=== PATIENT | male | born 1960 | race Caucasian/White ===

== ENCOUNTER → 2017-06-11 | Outpatient (CLI) | payer OTHER ==
[2017-06-11 19:09] LABS: ALBUMIN 4.1 GM/DL (3.2-5.2); ALBUMIN/GLOBULIN RATIO 1.03 (1.00-1.93); ALKALINE PHOSPHATASE 112 U/L (45-117); ALT/SGPT 36 U/L (12-78); ANION GAP 8 MEQ/L (8-16); AST/SGOT 34 U/L (7-37); BILIRUBIN,TOTAL 0.9 MG/DL (0.2-1.0); BLOOD UREA NITROGEN 7 MG/DL (7-18); CALCIUM LEVEL 9.2 MG/DL (8.5-10.1); CARBON DIOXIDE LEVEL 28 MEQ/L (21-32); CHLORIDE LEVEL 102 MEQ/L (98-107); CREATININE FOR GFR 1.02 MG/DL (0.70-1.30); GLOMERULAR FILTRATION RATE > 60.0 (>56); GLUCOSE, FASTING 103 MG/DL (70-100); NT-PRO BNP 136 PG/ML (<125); SODIUM LEVEL 138 MEQ/L (136-145); TOTAL PROTEIN 8.1 GM/DL (6.4-8.2)
[2017-06-11 19:18] LABS: BASO # 0.1 10^3/uL (0.0-0.2); BASO % 0.5 % (0.0-1.0); EOS # 0.1 10^3/uL (0.0-0.50); EOS % 0.5 % (0.0-3.0); HEMATOCRIT 46.7 % (42.0-52.0); HEMOGLOBIN 15.5 g/dl (14.0-18.0); IMMATURE GRANULOCYTE % 0.3 % (0-3.0); LYMPH # 1.4 10^3/uL (1.5-4.5); LYMPH % 12.6 % (24.0-44.0); MEAN CORPUSCULAR HEMOGLOBIN 31.6 pg (27.0-33.0); MEAN CORPUSCULAR HGB CONC 33.2 g/dl (32.0-36.5); MEAN CORPUSCULAR VOLUME 95.3 fl (80.0-96.0); MONO # 1.1 10^3/uL (0.0-0.8); MONO % 9.9 % (0.0-5.0); NEUTROPHILS # 8.4 10^3/uL (1.8-7.7); NEUTROPHILS % 76.2 % (36.0-66.0); PLATELET COUNT, AUTOMATED 247 10^3/uL (150-450); RED CELL DISTRIBUTION WIDTH 12.6 % (11.5-14.5)
== END ==
LOC: M ADAMS 08:34
DX: R07.9 Chest pain, unspecified (principal); E03.0 Congenital hypothyroidism with diffuse goiter
CPT/HCPCS: 80053

== ENCOUNTER → 2020-10-14 | Outpatient (REF) | payer OTHER ==
[2020-10-14 16:46] LABS: BASO # 0.1 10^3/uL (0.0-0.2); BASO % 0.9 % (0.0-1.0); EOS # 0.2 10^3/uL (0.0-0.5); EOS % 2.7 % (0.0-3.0); HEMATOCRIT 41.4 % (42.0-52.0); HEMOGLOBIN 13.5 g/dl (13.5-17.5); LYMPH # 1.9 10^3/uL (1.5-5.0); LYMPH % 25.7 % (24.0-44.0); MEAN CORPUSCULAR HEMOGLOBIN 31.5 pg (27.0-33.0); MEAN CORPUSCULAR HGB CONC 32.6 g/dl (32.0-36.5); MEAN CORPUSCULAR VOLUME 96.7 fl (80.0-96.0); MONO # 1.2 10^3/uL (0.0-0.8); MONO % 16.6 % (2.0-8.0); NEUTROPHILS % 53.8 % (36.0-66.0); PLATELET COUNT, AUTOMATED 264 10^3/uL (150-450); RED BLOOD COUNT 4.28 10^6/uL (4.30-6.10); WHITE BLOOD COUNT 7.4 10^3/uL (4.0-10.0)
[2020-10-14 18:35] LABS: ALBUMIN 3.5 GM/DL (3.2-5.2); ALT/SGPT 27 U/L (12-78); BILIRUBIN,TOTAL 0.5 MG/DL (0.2-1.0); BLOOD UREA NITROGEN 7 MG/DL (7-18); CALCIUM LEVEL 8.9 MG/DL (8.5-10.1); CARBON DIOXIDE LEVEL 27 MEQ/L (21-32); CHLORIDE LEVEL 106 MEQ/L (98-107); CHOLESTEROL LEVEL 200 MG/DL (<200); CHOLESTEROL RISK RATIO 2.173 (<5); CREATININE FOR GFR 0.75 MG/DL (0.70-1.30); GLOMERULAR FILTRATION RATE > 60.0 (>56); GLUCOSE, FASTING 73 MG/DL (70-100); HDL CHOLESTEROL 92 MG/DL (>40); LDL CHOLESTEROL 100 MG/DL (<100); NON-HDL-C 108 MG/DL; POTASSIUM SERUM 4.4 MEQ/L (3.5-5.1); SODIUM LEVEL 140 MEQ/L (136-145); TOTAL PROTEIN 7.1 GM/DL (6.4-8.2); TRIGLYCERIDES LEVEL 41 MG/DL (<150)
== END ==
LOC: M SFHCPLAZ 15:37 → M SFHCADAM 15:40
PROVIDERS: ATTEND Physician Assistant
DX: R03.0 Elevated blood-pressure reading, without diagnosis of hypertension (principal); F41.9 Anxiety disorder, unspecified

== ENCOUNTER → 2021-01-23 | Outpatient (CLI) | payer OTHER | LOC: M LABSMTC 09:19 | PROVIDERS: ATTEND Anesthesiology | DX: Z01.812 Encounter for preprocedural laboratory examination (principal); Z20.822 Contact with and (suspected) exposure to COVID-19 ==

== ENCOUNTER 2021-01-28 11:51 | Day surgery (SDC) | payer OTHER ==
[~2021-01-28] VITALS: Ht 160 cm; Wt 72.6 kg
[~2021-01-28 11:51] MED LIST: NS 1,000 ML IV ONE
--- OUTSIDE RECORDS SUMMARY | 2021-01-28 11:56 | CCD ---
Author Author [facility] Organization [facility] Address Unknown Phone Unavailable Care Team Providers Care Accounting Auditor Name Role Phone Emilynasrin Jacinta Unavailable PROBLEMS Type Condition ICD9-CM Code HVO89-WC Code Onset Dates Condition S tatus W/U Status Risk SNOMED Code Notes Problem Anxiety F41.9 Active confirmed 76660221 Problem Alcohol abuse F10.10 Active confirmed 398938 05 Problem Alcohol abuse 305.00 Active confirmed 887492 05 Problem Cervicalgia 723.1 Active confirmed 79275613 ALLERGIES No Known Allergies ENCOUNTERS from 1960 to 2020-12-21 Encounter Location Date Provider Diagnosis [address] [place] [address] Nov, Jacinta Bullard Alcohol abuse F10.10 ; Anxiety F41.9 ; E levated blood pressure reading R03.0 ; Colon cancer screening Z12.11 ; Encounter for immunization Z23 and Annual physical exam Z00.00 IMMUNIZATIONS Vaccine Route Administration Date Status TDAP 0.5mL Boostrix IM Intramuscular Dec 15, 2020 Administere d COVID-19 dose #2 given elsewhere Unspecified Unknown Sep Administered COVID-19 dose #1 given elsewhere Unspecified Unknown Sep Administered SOCIAL HISTORY Tobacco Use: Social History Observation Description Date Details (start date - stop date) Never Smoker Sex Assigned At : Social History Observation Description Sex Assigned At Unknown Education: Question Answer Notes Level of Education: High School Audit Question Answer Notes Total Score: 4 Interpretation: Alcohol Education Drug and Alcohol Question Answer Notes Total Score: 0 Interpretation: No problems reported Tobacco Use: Question Answer Notes Are you a: never smoker REASON FOR REFERRAL from 1960 to 2020-12-21 Reason Patient should have a routin e colonoscopy. Please eval and treat. Diagnosis 1 Colon cancer screening (Z12. 11) Referral Organization [facility] Abdi Referring Provider First Name Jacinta Referring Provider Last Name Juan Miguel Referring Provider Specialty Family Medicine Referred Provider General Lety MORAN (Jose jeffers) Referred Provider Specialty General Surgery Referral Priority Routine General Notes Wyatt Abbott 12/15/2020 4:36 :03 PM > faxed VITAL SIGNS Weight 166.1 lbs Nov, Weight-kg 75.34 kg Nov, Height 5'5" in Nov, BMI 27.64 kg/m2 Nov, Heart Rate 105 /min Nov, Respiratory Rate 18 /min Nov, Temperature 98.2 degrees Fahrenheit Nov, Oximetry 99 Nov, Blood pressure systolic 152 mm Hg Nov, Blood pressure diastolic 88 mm Hg Nov, MEDICATIONS Medication SIG (Take, Route, Frequency, Duration) Notes Start Da te End Date Status Blood Pressure Monitor/Arm - as directed daily for 30 days Sep, Active PROCEDURES No Information RESULTS No Results REASON FOR VISIT LIBRARY SERVICES [facility] (GENERAL) HISTORY Type Description Date Surgical History artery repair right arm Surgical History foot repair Hospitalization History infection left foot Hospitalization History fell and hit neck Goals Section No Information Health Concerns No Information MEDICAL EQUIPMENT No Information MENTAL STATUS No Information FUNCTIONAL STATUS No Information ASSESSMENTS Encounter Date Diagnosis Assessment Notes Treatment Notes Treatm ent Clinical Notes Nov, Alcohol abuse (ICD-10 - F10.10) Nov, Anxiety (ICD-10 - F41.9) Discussed. This seems primarily situational for him. He does not want medication. Declines referral for counseling. He isn't sure if this is closely related to drinking; denies drinking to deal with anxiety. He does feel more anxious when he hasn't had a drink in a while. Nov, Elevated blood pressure reading (ICD-10 - R03.0) Improved later in the visit, home readings are all within goal. Nov, Colon cancer screening (ICD-10 - Z12.11) Nov, Encounter for immunization (ICD-10 - Z23) Immunizations reviewed. Any questions were answered. Patient agreed to immunization, and received vaccine in office today. Nov, Annual physical exam (ICD-10 - Z00.00) Patient seen and examined. Past medical, surgical, family, social history reviewed. Discussed preventive medicine, including immunizations. Appropriate labwork was previously ordered. PLAN OF TREATMENT Treatment Notes Assessment Notes Clinical Notes Anxiety Discussed. This see ms primarily situational for him. He does not want medication. Declines referral for counseling. He isn't sure if this is closely related to drinking; denies drinking to deal with anxiety. He does feel more anxious when he hasn't had a drink in a while. Elevated blood pressure reading Improved later in the visit, home readings are all within goal. Encounter for immunization Immunizations reviewed. Any questions were answered. Patient agreed to immunization, and received vaccine in office today. Annual physical exam Patient seen and ex amined. Past medical, surgical, family, social history reviewed. Discussed preventive medicine, including immunizations. Appropriate labwork was previously ordered. Future Test Test Name Order Date Imm: Boostrix 0.5mL IM TDAP [id number] Referrals Referral Date Details Patient should have a routin e colonoscopy. Please eval and treat., [facility]ge[facility] ([facility] Next Appt Details 2-3 months Reason:f/u Provider Name:Jacinta Bullard, 2021-02-23 08:00:00 AM, [address], , [place], [address], Follow Up:2-3 monthsf/u Insurance Providers Payer Name Payer Address Payer Phone Insured Name Patient Relati onship to Insured Coverage Start Date Coverage End Date [employer] CLAIM[employer] DEPT [address] [facility] [phone] MARJORIE TABARES
--- OUTSIDE RECORDS SUMMARY | 2021-01-28 11:56 | CCD ---
Author Author [facility] Organization [facility] Address Unknown Phone Unavailable Care Team Providers Care Mobile Ui/Ux Designer Name Role Phone Ontiveros, L Lauren RPA Unavailable Unavailable Ontiveros, L Lauren RPA Unavailable Unavailable Ontiveros, L Lauren RPA Unavailable Unavailable Ontiveros, L Lauren RPA Unavailable Unavailable Ontiveros, L Lauren RPA Unavailable Unavailable Ontiveros, L Lauren RPA Unavailable Unavailable Ontiveros, L Lauren RPA Unavailable Unavailable Ontiveros, L Lauren RPA Unavailable Unavailable Ontiveros, L Lauren RPA Unavailable Unavailable Ontiveros, L Lauren RPA Unavailable Unavailable Ontiveros, L Lauren RPA Unavailable Unavailable Ontiveros, L Lauren RPA Unavailable Unavailable Ontiveros, L Lauren RPA Unavailable Unavailable Ontiveros, L Lauren RPA Unavailable Unavailable Ontiveros, L Lauren RPA Unavailable Unavailable Ontiveros, L Lauren RPA Unavailable Unavailable Ontiveros, L Lauren RPA Unavailable Unavailable Ontiveros, L Lauren RPA Unavailable Unavailable Ontiveros, L Lauren RPA Unavailable Unavailable Ontiveros, L Lauren RPA Unavailable Unavailable Ontiveros, L Lauren RPA Unavailable Unavailable Ontiveros, L Lauren RPA Unavailable Unavailable Ontiveros, L Lauren RPA Unavailable Unavailable Ontiveros, L Lauren RPA Unavailable Unavailable Ontiveros, L Lauren RPA Unavailable Unavailable Ontiveros, L Lauren RPA Unavailable Unavailable Ontiveros, L Lauren RPA Unavailable Unavailable Ontiveros, L Lauren RPA Unavailable Unavailable Ontiveros, L Lauren RPA Unavailable Unavailable Ontiveros, L Lauren RPA Unavailable Unavailable Ontiveros, L Lauren RPA Unavailable Unavailable Ontiveros, L Lauren RPA Unavailable Unavailable Re-disclosure Warning The records that you are about to access may contain information from federally-assisted alcohol or drug abuse programs. If such information is present, then the following federally mandated warning applies: This information has been disclosed to you from records protected by federal confidentiality rules (42 CFR part 2). The federal rules prohibit you from making any further disclosure of this information unless further disclosure is expressly permitted by the written consent of the person to whom it pertains or as otherwise permitted by 42 CFR part 2. A general authorization for the release of medical or other information is NOT sufficient for this purpose. The Federal rules restrict any use of the information to criminally investigate or prosecute any alcohol or drug abuse patient.The records that you are about to access may contain highly sensitive health information, the redisclosure of which is protected by Article 27-F of the [facility] Public Health law. If you continue you may have access to information: Regarding HIV / AIDS; Provided by facilities licensed or operated by the [facility] Office of Mental Health; or Provided by the [facility] Office for People With Developmental Disabilities. If such information is present, then the following [facility] mandated warning applies: This information has been disclosed to you from confidential records which are protected by state law. State law prohibits you from making any further disclosure of this information without the specific written consent of the person to whom it pertains, or as otherwise permitted by law. Any unauthorized further disclosure in violation of state law may result in a fine or fpc sentence or both. A general authorization for the release of medical or other information is NOT sufficient authorization for further disc losure. Family History Family Member Name Family Member Gender Family Member Status Date o f Status Description Data Source(s) Unknown Female Problem MEDENT ([facility]) Encounters Encounter Providers Location Date Indications Data Source(s ) Outpatient Attender: Lauren Hogan/Rashard/Bereniec bryant 12/31/2020 09:30:00 AM EDT MEDENT ([facility] [place] [address] [facility] [address] 12/15/2020 12:00:00 AM EDT eCW1 ([facility]) Outpatient [address] [facility] [address] 10/13/2020 12:00:00 AM EDT eCW1 ([facility]) [place] [address] [facility] [address] 10/09/2020 12:00:00 AM EDT eCW1 ([facility]) Immunizations Vaccine Date Status Description Data Source(s) Tdap 12/15/2020 11:59:00 AM EDT completed e CW1 ([facility]) COVID-19 dose #2 given elsewhere Unspecified 10/08/2020 03:4 7:00 PM EDT completed eCW1 ([facility]) COVID-19 dose #2 given elsewhere Unspecified 10/08/2020 03:4 7:00 PM EDT completed eCW1 ([facility]) COVID-19 dose #2 given elsewhere Unspecified 10/08/2020 03:4 7:00 PM EDT completed eCW1 ([facility]) COVID-19 VACC, MRNA(PFIZER)/PF 10/08/2020 12:00:00 AM EDT completed [facility] COVID-19 VACCINE Pfizer 10/08/2020 12:00:00 AM EDT completed [facility] Vaccine Series Complete: YESThis Data wa s Submitted to [facility] Via [employer]. COVID-19 dose #1 given elsewhere Unspecified 09/21/2020 03:4 7:00 PM EDT completed eCW1 ([facility]) COVID-19 dose #1 given elsewhere Unspecified 09/21/2020 03:4 7:00 PM EDT completed eCW1 ([facility]) COVID-19 dose #1 given elsewhere Unspecified 09/21/2020 03:4 7:00 PM EDT completed eCW1 ([facility]) COVID-19 VACC, MRNA(PFIZER)/PF 09/20/2020 12:00:00 AM EDT completed [facility] COVID-19 VACCINE Pfizer 09/20/2020 12:00:00 AM EDT completed [facility] Vaccine Series Complete: NOThis Data was Submitted to [facility] [employer]. Medications Medication Brand Name Start Date Product Form Dose Route Admi nistrative Instructions Pharmacy Instructions Status Indications Reaction Description Data Source(s) SUPREP BOWEL PREP KIT 17.5-3.13-1.6 gram SODIUM, POTASSIUM,M AG SULFATES 01/16/2021 12:00:00 AM EDT recon soln 354 TAKE PER DOCTOR'S BOWEL PREP INSTRUCTIONS TAKE PER DOCTOR'S BOWEL PREP INSTRUCTIONS SOLD: 01/22/2021 [facility] Blood Pressure Monitor/Arm - Blood Pressure Monitor/Arm - 12:00:00 AM EDT active Blood Pressure Mo nitor/Arm - eCW1 ([facility]) BLOOD PRESSURE TEST KIT-LARGE 10/09/2020 12:00:00 AM EDT kit 1 USE DAILY DIRECTED USE DAILY DIRECTED SOLD: 10/12/2020 [facility] Blood Pressure Monitor/Arm - Blood Pressure Monitor/Arm - 12:00:00 AM EDT active Blood Pressure Mo nitor/Arm - eCW1 ([facility]) Blood Pressure Monitor/Arm - Blood Pressure Monitor/Arm - 12:00:00 AM EDT active Blood Pressure Mo nitor/Arm - eCW1 ([facility]) 100 mg 09/16/2020 12:00:00 AM EDT capsule 20 TAKE ONE CAPSULE BY MOUTH EVERY 12 HOURS FOR 10 DAYS TAKE ONE CAPSULE BY MOUTH EVERY 12 HOURS FOR 10 DAYS S OLD: 09/16/2020 [facility] Insurance Providers Payer name Policy type / Coverage type Policy ID Covered democrat ID Covered democrat's relationship to german Policy German Plan Information PENDING SALE TO [facility] [id number] SP [id number] [facility] [employer] [employer] [id number] SP [id number] Problems, Conditions, and Diagnoses Code Display Name Description Problem Type Effective Dates Data Source(s) F10.10 [id number] Alcohol abuse Problem 12/15/2020 12:00:00 AM EDT eCW1 ([facility]) F41.9 [id number] Anxiety Problem 10/09/2020 12:00:00 AM ED T eCW1 ([facility]) Surgeries/Procedures Procedure Description Date Indications Data Source(s) OFFICE OUTPATIENT NEW 30 MINUTES 12/31/2020 12:00:00 A M EDT MEDENT ([facility]) Results ID Date Data Source [id number] 01/23/2021 09:00:00 AM EDT [facility] Name Value Range Interpretation Code Description Data Julee rce(s) Supporting Document(s) SARS-CoV-2 (COVID-19) RNA [Presence] in Respiratory specimen by ENEDINA with probe detection Not Detected [facility] This lab was ordered by [facility] and reported by [employer]. Procedure Social History Code Duration Value Status Description Data Source(s ) Smoking 12/15/2020 12:00:00 AM EDT Never Smoker completed Never S moker eCW1 ([facility]) Vital Signs ID Date Data Source UNK Name Value Range Interpretation Code Description Data Source(s) Systolic blood pressure 166 mm[Hg] 166 mm[Hg] [facility] ([facility]) Diastolic blood pressure 100 mm[Hg] 100 mm[Hg] [facility] ([facility]) Body temperature 98.2 [degF] 98.2 [degF] [facility] ([facility]) Body height 64 [in_i] 64 [in_i] [facility] ([facility]) 5'4" Body weight 164.12 [lb_av] 164.12 [lb_av] [facility] ([facility]) Body mass index (BMI) [Ratio] 28.2 kg/m2 28.2 k g/m2 [facility] ([facility]) [place] body weight 130 [lb_av] 130 [facility]lb_av[facility] Body weight 74.447 kg 74.447 kg [facility] ([facility]) Body surface area Derived from formula 1.80 m2 1.80 m2 [facility] ([facility]) Body weight 166.1 [lb_av] 166.1 [lb_av] eCW1 ([facility] Body weight 75.34 kg 75.34 kg W1 ([facility]) Body height [in_i] eCW1 ([facility]) Body mass index (BMI) [Ratio] 27.64 kg/m2 27.64 kg/m2 eCW1 ([facility]) Heart rate 105 /min 105 /min eCW1 ([facility]) Respiratory rate 18 /min 18 /min eCW1 ([facility]) Body temperature 98.2 [degF] 98.2 [degF] eCW1 ( [facility]) Systolic blood pressure 152 mm[Hg] 152 mm[Hg] e CW1 ([facility]) Diastolic blood pressure 88 mm[Hg] 88 mm[Hg] eCW1 ([facility]) Body weight 166.6 [lb_av] 166.6 [lb_av] eCW1 ([facility]) Body height [in_i] eCW1 ([facility]) Body mass index (BMI) [Ratio] 27.72 kg/m2 27.72 kg/m2 eCW1 ([facility]) Heart rate 117 /min 117 /min eCW1 ([facility]) Respiratory rate 18 /min 18 /min eCW1 ([facility]) Body temperature 98.6 [degF] 98.6 [degF] eCW1 ( [facility]) Systolic blood pressure 148 mm[Hg] 148 mm[Hg] e CW1 ([facility]) Diastolic blood pressure 96 mm[Hg] 96 mm[Hg] eCW1 ([facility]) Body weight 166.8 [lb_av] 166.8 [lb_av] eCW1 ([facility]) Body height [in_i] eCW1 ([facility]) Body mass index (BMI) [Ratio] 27.75 kg/m2 27.75 kg/m2 eCW1 ([facility]) Heart rate 80 /min 80 /min eCW1 ([facility]) Respiratory rate 18 /min 18 /min eCW1 ([facility]) Body temperature 97.4 [degF] 97.4 [degF] eCW1 ( [facility]) Systolic blood pressure 134 mm[Hg] 134 mm[Hg] e CW1 ([facility]) Diastolic blood pressure 78 mm[Hg] 78 mm[Hg] eCW1 ([facility])
--- OUTSIDE RECORDS SUMMARY | 2021-01-28 11:56 | CCD | Continuity of Care Document ---
Author Author Dannie CASTILLO Organization Unknown Address [address], [address] [place] [address] Phone [phone] Care Team Providers Care Polytechnic Registrar Name Role Phone AUTM Unavailable Jacinta Bullard D.O. AUTM [phone] Problems Description No Information Available Social History Type Date Description Comments Sex Unknown ETOH Use Currently consumes alcohol 6-12 DAILY Recreational Drug Use Sporadically uses Marijuan a Tobacco Use Start: Unknown End: Unknown Patient is a former smoker 1/2 PPD X8 YRS Tobacco Use Start: Unknown Quit 2009 Allergies and adverse reactions Description No Known Drug Allergies Medications Active Medications SIG Qnty Indications Ordering Provide r Date Ibuprofen 200mg Capsules by mouth as needed Unknown Immunizations Description No Information Available Vital Signs Date Vital Result Comment 12/31/2020 9:17am BP Systolic 166 mmHg BP Diastolic 100 mmHg Body Temperature 98.2 F Height 64 inches 5'4" Weight 164.12 lb BMI (Body Mass Index) 28.2 kg/m2 [place] Body Weight 130 lb Weight 74.447 kg BSA (Body Surface Area) 1.80 m2 Results Description No Information Available Procedures Date Code Description Status 12/31/2020 [address]673 Office/Outpatient New Low MDM 30 -44 Minutes Completed Medical Devices Description No Information Available Encounters Type Date Location Provider Dx Diagnosis Office Visit 12/31/2020 9:30a [facility] FRANCOIS Castro Z12.11 Encounter for screening for malignant ne oplasm of colon Assessments Date Code Description Provider 12/31/2020 Z12.11 Encounter for screening for bernardo gnant neoplasm of colon FRANCOIS Lamas Plan of Treatment Future Appointment(s):* 02/10/2021 8:30 am - David Anne DO at [facility] * 01/28/2021 2:30 pm - David Anne DO at [facility] 12/31/2020 - FRANCOIS Lamas* Z12.11 Encounter for screening for malignant neoplasm of colon Functional Status Description No Information Available Mental Status Description No Information Available Referrals Refer to Dr Reason for Referral Status Appt Date David Anne D.O. COLONOSCOPY Scheduled 12/25/[address] [place] [id number] [phone]
[2021-01-28] MEDS ORDERED: propofoL 500 MG/50 ML VIAL As Ordered ONE (12:16)
[2021-01-28] MEDS ORDERED: LIDOCAINE 2% 100MG/5ML SDV (FOR ANES.) As Ordered ONE (12:16)
--- NOTE | 2021-01-28 12:34 | ROOR ---
Patient Name: Dannie Souza Procedure Date: 01/28/2021 12:12 PM Date of : 1960 Age: 60 Room: [facility] Gender: Male Note Status: Finalized Procedure: Colonoscopy Indications: Screening for colorectal malignant neoplasm Providers: David Anne DO Referring MD: Jacinta Bullard DO Requesting Provider: Medicines: Propofol per Anesthesia Complications: No immediate complications. Procedure: Pre-Anesthesia Assessment: - Prior to the procedure, a History and Physical was performed, and patient medications and allergies were reviewed. The patient is competent. The risks and benefits of the procedure and the sedation options and risks were discussed with the patient. All questions were answered and informed consent was obtained. Patient identification and proposed procedure were verified by the physician, the nurse, the anesthesiologist and the computer laboratory technician in the endoscopy suite. Mental Status Examination: alert and oriented. Airway Examination: normal oropharyngeal airway and neck mobility. Respiratory Examination: clear to auscultation. CV Examination: normal. Prophylactic Antibiotics: The patient does not require prophylactic antibiotics. Prior Anticoagulants: The patient has taken no previous anticoagulant or antiplatelet agents. ASA Grade Assessment: II - A patient with mild systemic disease. After reviewing the risks and benefits, the patient was deemed in satisfactory condition to undergo the procedure. The anesthesia plan was to use monitored anesthesia care (MAC). Immediately prior to administration of medications, the patient was re-assessed for adequacy to receive sedatives. The heart rate, respiratory rate, oxygen saturations, blood pressure, adequacy of pulmonary ventilation, and response to care were monitored throughout the procedure. The physical status of the patient was re-assessed after the procedure. The Colonoscope was introduced through the anus and advanced to the cecum, identified by appendiceal orifice and ileocecal valve. The colonoscopy was performed without difficulty. The patient tolerated the procedure well. Findings: Multiple small-mouthed diverticula were found in the sigmoid colon and ascending colon. Non-bleeding internal hemorrhoids were found during retroflexion. The hemorrhoids were Grade I (internal hemorrhoids that do not prolapse). A less than 5 mm polyp was found in the cecum. The polyp was hyperplastic. The polyp was removed with a jumbo cold forceps. Resection and retrieval were complete. Estimated blood loss was minimal. Impression: - Diverticulosis in the sigmoid colon and in the ascending colon. - Non-bleeding internal hemorrhoids. - One less than 5 mm polyp in the cecum, removed with a jumbo cold forceps. Resected and retrieved. Recommendation: - Patient has a contact number available for emergencies. The signs and symptoms of potential delayed complications were discussed with the patient. Return to normal activities tomorrow. Written discharge instructions were provided to the patient. - Repeat colonoscopy in 3 - 5 years for surveillance based on pathology results. - Return to my office at appointment to be scheduled. Procedure Code(s): --- Professional --- 95938, Colonoscopy, flexible; with biopsy, single or multiple Diagnosis Code(s): --- Professional --- Z12.11, Encounter for screening for malignant neoplasm of colon K64.0, First degree hemorrhoids K63.5, Polyp of colon K57.30, Diverticulosis of large intestine without perforation or abscess without bleeding CPT copyright 2019 [employer]. All rights reserved. The codes documented in this report are preliminary and upon securities underwriter review may be revised to meet current compliance requirements. David Anne DO 01/28/2021 12:34:03 PM Electronically signed by David Anne DO Number of Addenda: 0 Note Initiated On: 01/28/2021 12:12 PM Estimated Blood Loss: Estimated blood loss was minimal.
[2021-01-28 12:55] VITALS: BP 162/96
== END 2021-01-28 13:06 | disposition home or self-care (01) ==
LOC: M OPP 11:51
PROVIDERS: ATTEND Surgery
DX: D12.0 Benign neoplasm of cecum (principal); K64.0 First degree hemorrhoids; K57.30 Diverticulosis of large intestine without perforation or abscess without bleeding; Z12.11 Encounter for screening for malignant neoplasm of colon

== ENCOUNTER 2022-02-15 08:43 | Emergency (ER) | payer OTHER ==
[~2022-02-15] VITALS: Ht 162.6 cm; Wt 75.2 kg
[2022-02-15 08:45] VITALS: BP 180/100
[2022-02-15] MEDS ORDERED: LIDOCAINE 2% MDV 20ML VIAL SC ONE (10:30)
[2022-02-15] MEDS ORDERED: BOOSTRIX/ADACEL VACCINE (DIPHTH/PERTUSS/ACELL/TETANUS) 0.5ML SYR IM ONE (11:00)
== END 2022-02-15 12:11 | disposition home or self-care (01) ==
LOC: M ED 08:43
DX: S61.215A Laceration without foreign body of left ring finger without damage to nail, initial encounter (principal); W23.2XXA Caught, crushed, jammed or pinched between a moving and stationary object, initial encounter; Y99.0 Civilian activity done for income or pay; Y93.H3 Activity, building and construction; Z23 Encounter for immunization

== ENCOUNTER → 2022-02-19 | Outpatient (REF) | payer OTHER ==
[2022-02-19 16:37] LABS: BASO # 0.1 10^3/uL (0.0-0.2); BASO % 0.8 % (0.0-1.0); EOS # 0.1 10^3/uL (0.0-0.5); EOS % 1.1 % (0.0-3.0); HEMATOCRIT 45.8 % (42.0-52.0); HEMOGLOBIN 15.1 g/dl (13.5-17.5); LYMPH # 2.7 10^3/uL (1.5-5.0); LYMPH % 25.3 % (24.0-44.0); MONO # 1.1 10^3/uL (0.0-0.8); NEUTROPHILS # 6.7 10^3/uL (1.5-8.5); NEUTROPHILS % 62.5 % (36.0-66.0); PLATELET COUNT, AUTOMATED 338 10^3/uL (150-450); RED BLOOD COUNT 4.87 10^6/uL (4.30-6.10); WHITE BLOOD COUNT 10.8 10^3/uL (4.0-10.0)
[2022-02-19 17:29] LABS: ALBUMIN 4.3 G/DL (3.2-5.2); ALKALINE PHOSPHATASE 81 U/L (46-116); ALT/SGPT 32 U/L (7.0-40); AST/SGOT 42 U/L (<34); BILIRUBIN,TOTAL 0.5 MG/DL (0.3-1.2); BLOOD UREA NITROGEN 10 MG/DL (9-23); CALCIUM LEVEL 9.6 MG/DL (8.5-10.1); CARBON DIOXIDE LEVEL 28 MMOL/L (20-31); CHLORIDE LEVEL 98 MMOL/L (98-107); CHOLESTEROL LEVEL 240 MG/DL (<200); CREATININE FOR GFR 0.87 MG/DL (0.70-1.30); GLOMERULAR FILTRATION RATE > 60.0 (>56); GLUCOSE, FASTING 95 MG/DL (60-100); HDL CHOLESTEROL 85.5 MG/DL (>40); LDL CHOLESTEROL 120.3 MG/DL (<100); NON-HDL-C 155 MG/DL; POTASSIUM SERUM 4.7 MMOL/L (3.5-5.1); SODIUM LEVEL 138 MMOL/L (136-145); TRIGLYCERIDES LEVEL 171 MG/DL (<150)
== END ==
LOC: M SFHCADAM 13:54
PROVIDERS: ATTEND Family Medicine
DX: Z01.812 Encounter for preprocedural laboratory examination (principal); H26.9 Unspecified cataract

== ENCOUNTER → 2023-07-20 | Outpatient (REF) | payer OTHER ==
[2023-07-20 13:24] LABS: ALKALINE PHOSPHATASE 69 U/L (46-116); ALT/SGPT 22 U/L (7.0-40); AST/SGOT 16 U/L (<34); BILIRUBIN,TOTAL 0.4 MG/DL (0.3-1.2); BLOOD UREA NITROGEN 6 MG/DL (9-23); CALCIUM LEVEL 8.9 MG/DL (8.3-10.6); CARBON DIOXIDE LEVEL 29 MMOL/L (20-31); CHLORIDE LEVEL 105 MMOL/L (98-107); CREATININE FOR GFR 0.82 MG/DL (0.70-1.30); GLOMERULAR FILTRATION RATE > 60.0 (>49); GLUCOSE, FASTING 102 MG/DL (74-106); POTASSIUM SERUM 4.4 MMOL/L (3.5-5.1); SODIUM LEVEL 142 MMOL/L (136-145); TOTAL PROTEIN 6.3 G/DL (5.7-8.2)
[2023-07-20 13:27] LABS: BASO # 0.1 10^3/uL (0.0-0.2); BASO % 0.5 % (0.0-1.0); EOS # 0.2 10^3/uL (0.0-0.5); EOS % 1.8 % (0.0-3.0); HEMATOCRIT 40.1 % (42.0-52.0); HEMOGLOBIN 13.1 g/dl (13.5-17.5); LYMPH % 16.4 % (24.0-44.0); MEAN CORPUSCULAR HEMOGLOBIN 31.6 pg (27.0-33.0); MEAN CORPUSCULAR HGB CONC 32.7 g/dl (32.0-36.5); MEAN CORPUSCULAR VOLUME 96.6 fl (80.0-96.0); MONO # 1.1 10^3/uL (0.0-0.8); MONO % 8.8 % (2.0-8.0); NEUTROPHILS # 8.8 10^3/uL (1.5-8.5); NEUTROPHILS % 72.1 % (36.0-66.0); PLATELET COUNT, AUTOMATED 352 10^3/uL (150-450); RED BLOOD COUNT 4.15 10^6/uL (4.30-6.10); WHITE BLOOD COUNT 12.2 10^3/uL (4.0-10.0)
== END ==
LOC: M SFHCADAM 09:40
PROVIDERS: ATTEND Physician Assistant
DX: R10.814 Left lower quadrant abdominal tenderness (principal); F10.11 Alcohol abuse, in remission

== ENCOUNTER → 2023-07-20 | Outpatient (CLI) | payer OTHER ==
[~2023-07-20] MED LIST changes: +ISOVUE-370 76% 100ML VIAL As Ordered ONE; -NS 1,000 ML IV ONE
== END ==
LOC: M RAD 11:35
PROVIDERS: ATTEND Physician Assistant
DX: R10.814 Left lower quadrant abdominal tenderness (principal); K57.30 Diverticulosis of large intestine without perforation or abscess without bleeding
CPT/HCPCS: 74177; Q9967